=== PATIENT | female | born 1990 | race Caucasian/White ===

== ENCOUNTER 2023-05-10 21:36 | Emergency (ER) | payer OTHER ==
[~2023-05-10] VITALS: Ht 157.5 cm; Wt 57.1 kg
[2023-05-10] MEDS ORDERED: LAMO25 PO (21:55)
[2023-05-10] MEDS ORDERED: SPIR25 PO (21:56)
[2023-05-10] MEDS ORDERED: PRAZ2 PO (21:56)
[2023-05-10] MEDS ORDERED: Nicoderm Cq1 EACH TOP (21:56)
[2023-05-10] MEDS ORDERED: NICOTINE LOZENGE2 MG MM (21:56)
[2023-05-10 22:20] VITALS: BP 150/86
[2023-05-10] MEDS ORDERED: Prinivil5 MG PO (22:24)
== END 2023-05-10 22:35 | disposition home or self-care (01) ==
LOC: ER 21:36
DX: I10 Essential (primary) hypertension (principal); Z79.899 Other long term (current) drug therapy
CPT/HCPCS: 99283